=== PATIENT | male | born 1965 | race Caucasian/White ===

== ENCOUNTER 2017-10-26 10:25 | Inpatient (IN) ==
[2017-10-26] MEDS ORDERED: SODIUM CHLORIDE 0.9% 1,000 ML IV STA (10:51)
[2017-10-26] MEDS ORDERED: ALBUTEROL/IPRATROPIUM 3 ML NEB RESP TX STA (10:51)
[2017-10-26] MEDS ORDERED: methylPREDNISolone SOD SUC 125 MG/2 ML VIAL IV STA (10:51)
[2017-10-26] MEDS ORDERED: MAGNESIUM SULF RIDER 2 GM in PREMIX 1 EACH IV STA (10:51)
[2017-10-26] MEDS ORDERED: methylPREDNISolone SOD SUC 125 MG/2 ML VIAL ONE (11:03)
[2017-10-26] MEDS ORDERED: MAGNESIUM SULF RIDER 50 ML IV ONE (11:03)
[2017-10-26 11:10] LABS: Basophils # 0.1 10*3/uL (0.0-0.2); Basophils % 0.6 % (0.0-0.8); Eosinophils % 0.2 % (0.00-10.9); Hematocrit 51.1 VOL% (42.0-52.0); Hemoglobin 17.2 GM/DL (14.0-18.0); Immature Granulocytes % 0.5 %; Immature Granulocytes Absolute 0.07 #; Lymphocytes # 1.4 10*3/uL (1.4-4.0); Lymphocytes % 10.3 % (21.2-54.2); Mean Corpuscular HGB Conc 33.7 GM/DL (32-36); Mean Corpuscular Hemoglobin 30 PG (27-34); Mean Corpuscular Volume 88.1 FL (87-102); Mean Platelet Volume 9.2 FL (9.6-12.0); Monocytes # 1.1 10*3/uL (0.11-0.8); Monocytes % 8.4 % (1.7-12.7); Neutrophils # 10.6 10*3/uL (1.4-7.4); Platelet Count 338 T/CUMM (130-400); Red Cell Distribution Width 14.5 % (9.3-17.3); White Blood Count 13.3 T/CUMM (4-12)
[2017-10-26 11:19] LABS: PT Patient Result 10.4 SECS
[2017-10-26 11:30] LABS: Lactic Acid 1.7 MMOL/L (0.4-2.0)
[2017-10-26 11:32] LABS: Alanine Aminotransferase 30 U/L (16-61); Albumin 4.1 G/DL (3.4-5.0); Alkaline Phosphatase 46 U/L (45-117); Aspartate Amino Transferase 19 U/L (0-37); Blood Urea Nitrogen 12 MG/DL (7-18); Calcium 9.6 MG/DL (8.5-10.1); Glucose 82 MG/DL (74-106); Osmolality,Calculated 275.5 MOS/KG (273-304); Potassium 3.9 MMOL/L (3.5-5.1); Sodium 139 MMOL/L (136-145); Total Protein 7.8 G/DL (6.4-8.3); Troponin I Only < 0.015 NG/ML (0.00-0.045)
[2017-10-26] MEDS ORDERED: KETOROLAC 30 MG/1 ML VIAL IV STA (11:46)
[2017-10-26] MEDS ORDERED: cloNIDine 0.1 MG TABLET PO STA (11:46)
[2017-10-26] MEDS ORDERED: cloNIDine 0.1 MG TABLET ONE (11:47)
[2017-10-26] MEDS ORDERED: KETOROLAC 30 MG/1 ML VIAL ONE (11:48)
[2017-10-26] MEDS ORDERED: AZITHROMYCIN INJ 500 MG in SODIUM CHLORIDE 0.9% 250 ML IV STA (11:52)
[2017-10-26] MEDS ORDERED: cefTRIAXone 2,000 MG in SODIUM CHLORIDE 0.9% 100 ML IV STA (11:52)
[2017-10-26] MEDS ORDERED: cefTRIAXone 1,000 MG VIAL ONE (12:06)
[2017-10-26] MEDS ORDERED: ALBUTEROL/IPRATROPIUM 3 ML NEB RESP TX PRN (12:48)
[2017-10-26] MEDS ORDERED: methylPREDNISolone SOD SUC 40 MG/1 ML VIAL IV SCH (13:00)
[2017-10-26] MEDS ORDERED: guaiFENesin/DM ER 600-30 MG TABLET PO PRN (13:18)
[2017-10-26] MEDS ORDERED: ACETAMINOPHEN 325 MG TABLET PO PRN (13:18)
[2017-10-26] MEDS ORDERED: ZALEPLON 5 MG CAPSULE PO PRN (13:18)
[2017-10-26] MEDS ORDERED: ONDANSETRON 4 MG/2 ML VIAL IV PRN (13:18)
[2017-10-26] MEDS ORDERED: AZITHROMYCIN 500 MG VIAL IV ONE (13:19)
[2017-10-26] MEDS: cefTRIAXone 1,000 MG in SYRINGE 1 EACH IV SCH (16:21)
[2017-10-26] MEDS: SODIUM CHLORIDE 0.9% 1,000 ML IV SCH (16:27)
[2017-10-26] MEDS: ENOXAPARIN 40 MG/0.4 ML SYRINGE SUBCUT SCH (16:27)
[2017-10-26] MEDS ORDERED: TEMAZEPAM 15 MG CAPSULE PO PRN (18:55)
[2017-10-26] MEDS: ALBUTEROL/IPRATROPIUM 3 ML NEB RESP TX SCH ×2 (19:30→23:15)
[2017-10-26 20:50] LABS: ABG Base Excess 0.4 MMOL/L (-2.5-2.5); ABG HCO3 24.7 MMOL/L (20-26); ABG Oxygen Saturation 97.2 % (95-100); ABG PCO2 41.9 MM HG (35-48); ABG PH 7.392 (7.35-7.45); ABG PO2 90.6 MM HG (80-95); ABG TCO2 21.7 MMOL/L (23-27); Allen Test Positive
[2017-10-26] MEDS: methylPREDNISolone SOD SUC 40 MG/1 ML VIAL IV SCH (20:58)
[2017-10-26] MEDS: DOCUSATE SODIUM 100 MG CAPSULE PO SCH (21:01)
[2017-10-27] MEDS: methylPREDNISolone SOD SUC 40 MG/1 ML VIAL IV SCH ×3 (03:11→17:00)
[2017-10-27 03:13] LABS: Basophils % 0.1 % (0.0-0.8); Hematocrit 43.9 VOL% (42.0-52.0); Hemoglobin 15.3 GM/DL (14.0-18.0); Immature Granulocytes % 0.7 %; Immature Granulocytes Absolute 0.06 #; Lymphocytes # 0.5 10*3/uL (1.4-4.0); Mean Corpuscular HGB Conc 34.9 GM/DL (32-36); Mean Corpuscular Hemoglobin 30 PG (27-34); Mean Corpuscular Volume 86.8 FL (87-102); Mean Platelet Volume 9.4 FL (9.6-12.0); Monocytes # 0.5 10*3/uL (0.11-0.8); Neutrophils # 7.9 10*3/uL (1.4-7.4); Neutrophils % 87.2 % (38.7-73.9); Platelet Count 309 T/CUMM (130-400); Red Blood Count 5.06 MC/CUMM (3.8-5.5); Red Cell Distribution Width 14.5 % (9.3-17.3)
[2017-10-27] MEDS: ALBUTEROL/IPRATROPIUM 3 ML NEB RESP TX SCH ×5 (03:18→19:33)
[2017-10-27 03:40] LABS: Albumin 3.3 G/DL (3.4-5.0); Bilirubin,Total 0.5 MG/DL (0.2-1.0); Calcium 8.5 MG/DL (8.5-10.1); Osmolality,Calculated 282.3 MOS/KG (273-304); Potassium 4.5 MMOL/L (3.5-5.1); Total Protein 6.5 G/DL (6.4-8.3)
[2017-10-27] MEDS: DOCUSATE SODIUM 100 MG CAPSULE PO SCH ×2 (08:10→21:25)
[2017-10-27] MEDS: PANTOPRAZOLE 40 MG TABLET PO SCH (08:10)
[2017-10-27] MEDS: SODIUM CHLORIDE 0.9% 1,000 ML IV SCH (10:43)
[2017-10-27] MEDS ORDERED: GLUCAGON 1 MG VIAL IM PRN (13:11)
[2017-10-27] MEDS ORDERED: DEXTROSE 50% 25 GM/50 ML VIAL IV PRN (13:11)
[2017-10-27] MEDS: cefTRIAXone 1,000 MG in SYRINGE 1 EACH IV SCH (13:34)
[2017-10-27] MEDS: ENOXAPARIN 40 MG/0.4 ML SYRINGE SUBCUT SCH (13:39)
[2017-10-27] MEDS: AZITHROMYCIN INJ 500 MG in SODIUM CHLORIDE 0.9% 250 ML IV SCH (13:41)
[2017-10-27] MEDS: INSULIN LISPRO 100 UNIT/ML SUBCUT SCH (21:25)
[2017-10-28] MEDS: ALBUTEROL/IPRATROPIUM 3 ML NEB RESP TX SCH ×4 (00:03→10:56)
[2017-10-28] MEDS: methylPREDNISolone SOD SUC 40 MG/1 ML VIAL IV SCH ×2 (00:34→09:00)
[2017-10-28 06:58] VITALS: BP 131/70
[2017-10-28] MEDS: INSULIN LISPRO 100 UNIT/ML SUBCUT SCH ×2 (07:15→08:52)
[2017-10-28] MEDS: AZITHROMYCIN INJ 500 MG in SODIUM CHLORIDE 0.9% 250 ML IV SCH (09:03)
[2017-10-28] MEDS: DOCUSATE SODIUM 100 MG CAPSULE PO SCH (09:05)
[2017-10-28] MEDS: PANTOPRAZOLE 40 MG TABLET PO SCH (09:06)
== END 2017-10-28 12:18 | disposition home or self-care (01) | DRG 190 ==
LOC: N.ED 10:25 → N.EDINP 13:16 → N.2E 15:46
PROVIDERS: ADMIT Pediatrics; ATTEND Pediatrics

== ENCOUNTER 2018-09-05 10:16 | Inpatient (IN) ==
[2018-09-05] MEDS ORDERED: hydrALAZINE 20 MG/1 ML VIAL IV STA (10:42)
[2018-09-05] MEDS ORDERED: cefTRIAXone 1,000 MG in SODIUM CHLORIDE 0.9% 100 ML IV STA (10:42)
[2018-09-05] MEDS ORDERED: methylPREDNISolone SOD SUC 125 MG/2 ML VIAL IV STA (10:42)
[2018-09-05] MEDS ORDERED: SODIUM CHLORIDE 0.9% 500 ML IV STA (10:42)
[2018-09-05] MEDS ORDERED: ALBUTEROL 2.5 MG/3 ML NEB RESP TX SCH (11:00)
[2018-09-05 11:07] LABS: Basophils # 0.1 10*3/uL (0.0-0.2); Basophils % 0.7 % (0.0-0.8); Eosinophils # 0.1 10*3/uL (0.0-0.87); Eosinophils % 0.4 % (0.00-10.9); Hematocrit 46.9 VOL% (42.0-52.0); Hemoglobin 15.9 GM/DL (14.0-18.0); Immature Granulocytes % 0.4 %; Immature Granulocytes Absolute 0.05 #; Lymphocytes % 7.7 % (21.2-54.2); Mean Corpuscular HGB Conc 33.9 GM/DL (32-36); Mean Corpuscular Hemoglobin 29 PG (27-34); Mean Corpuscular Volume 86.9 FL (87-102); Mean Platelet Volume 9.5 FL (9.6-12.0); Monocytes # 0.7 10*3/uL (0.11-0.8); Monocytes % 5.7 % (1.7-12.7); Neutrophils # 10.4 10*3/uL (1.4-7.4); Neutrophils % 85.1 % (38.7-73.9); Platelet Count 400 T/CUMM (130-400); Red Cell Distribution Width 13.9 % (9.3-17.3); White Blood Count 12.3 T/CUMM (4-12)
[2018-09-05 11:22] LABS: PT Patient Result 10.6 SECS
[2018-09-05 11:23] LABS: Apearance,Urine CLEAR (Clear); Bilirubin,Urine Negative (Negative); Blood, Urine Negative (Negative); Glucose,Urine (UA) Negative (Negative); Ketones,Urine Negative (Negative); Mucus,Urine Occasional /LPF (Occasional); Nitrite,Urine Negative (Negative); Protein,Urine Negative; RBC,Urine <1 /HPF (0-4); Sperm,Urine Occasional /HPF (Negative); Urine Color Yellow (Yellow); Urine Specific Gravity 1.013 (1.001-1.035); Urine Urobilinogen < 2.0 EU/DL (0.2-1.0)
[2018-09-05 11:26] LABS: Alanine Aminotransferase 20 U/L (16-61); Albumin 3.9 G/DL (3.4-5.0); Alkaline Phosphatase 56 U/L (45-117); Aspartate Amino Transferase 15 U/L (0-37); Bilirubin,Total < 0.39 MG/DL (0.2-1.0); Blood Urea Nitrogen 16 MG/DL (7-18); Calcium 9.1 MG/DL (8.5-10.1); Glucose 98 MG/DL (74-106); Osmolality,Calculated 279.4 MOS/KG (273-304); Potassium 4.6 MMOL/L (3.5-5.1); Sodium 140 MMOL/L (136-145); Total Protein 7.5 G/DL (6.4-8.3)
[2018-09-05 11:30] LABS: Barbiturates Screen,Urine Negative (Negative); Benzodiazepines Screen,Urine Negative (Negative); Cannabinoid Screen,Urine Positive (Negative); Opiate Screen,Urine Negative (Negative); Phencyclidine Screen,Urine Negative (Negative)
[2018-09-05] MEDS ORDERED: MAGNESIUM SULF RIDER 2 GM in PREMIX 1 EACH IV STA (12:25)
[2018-09-05] MEDS ORDERED: ACETAMINOPHEN 325 MG TABLET PO PRN (14:19)
[2018-09-05] MEDS ORDERED: NICOTINE 21 MG/24 HR PATCH TRANSDERM PRN (14:19)
[2018-09-05] MEDS ORDERED: ONDANSETRON 4 MG/2 ML VIAL IV PRN (14:19)
[2018-09-05] MEDS ORDERED: MAGNESIUM SULF RIDER 2 GM in PREMIX 1 EACH IV PRN (14:26)
[2018-09-05] MEDS ORDERED: MAGNESIUM SULF RIDER 4 GM in PREMIX 1 EACH IV PRN (14:26)
[2018-09-05] MEDS ORDERED: ALBUTEROL 2.5 MG/3 ML NEB RESP TX PRN ×2 (14:30→19:00)
[2018-09-05] MEDS ORDERED: IPRATROPIUM/ALBUTEROL INHALER INH SCH (17:00)
[2018-09-05] MEDS: AZITHROMYCIN INJ 500 MG in SODIUM CHLORIDE 0.9% 250 ML IV SCH (18:05)
[2018-09-05] MEDS: methylPREDNISolone SOD SUC 40 MG/1 ML VIAL IV SCH (18:06)
[2018-09-05] MEDS: ALBUTEROL/IPRATROPIUM 3 ML NEB RESP TX SCH (20:13)
[2018-09-06] MEDS: ACETYLCYSTEINE 20% 800 MG/4 ML VIAL RESP TX SCH ×3 (00:41→16:02)
[2018-09-06] MEDS: ALBUTEROL/IPRATROPIUM 3 ML NEB RESP TX SCH ×4 (00:41→19:50)
[2018-09-06] MEDS: methylPREDNISolone SOD SUC 40 MG/1 ML VIAL IV SCH ×3 (02:19→18:14)
[2018-09-06 06:44] LABS: Basophils % 0.1 % (0.0-0.8); Hematocrit 44.5 VOL% (42.0-52.0); Hemoglobin 14.5 GM/DL (14.0-18.0); Immature Granulocytes % 0.6 %; Immature Granulocytes Absolute 0.07 #; Lymphocytes # 0.8 10*3/uL (1.4-4.0); Lymphocytes % 7.5 % (21.2-54.2); Mean Corpuscular HGB Conc 32.6 GM/DL (32-36); Mean Corpuscular Hemoglobin 29 PG (27-34); Mean Corpuscular Volume 87.9 FL (87-102); Mean Platelet Volume 9.9 FL (9.6-12.0); Monocytes # 0.6 10*3/uL (0.11-0.8); Monocytes % 5.5 % (1.7-12.7); Neutrophils # 9.6 10*3/uL (1.4-7.4); Neutrophils % 86.3 % (38.7-73.9); Platelet Count 389 T/CUMM (130-400); Red Blood Count 5.06 MC/CUMM (3.8-5.5); Red Cell Distribution Width 14.3 % (9.3-17.3); White Blood Count 11.1 T/CUMM (4-12)
[2018-09-06 07:07] LABS: Calcium 8.5 MG/DL (8.5-10.1); Osmolality,Calculated 284.1 MOS/KG (273-304); Risk Ratio 4.38; Thyroid Stimulating Hormone 0.628 uIU/ml (0.358-3.74); VLDL CHOLESTEROL 12.8 MG/DL
[2018-09-06] MEDS: PANTOPRAZOLE 40 MG TABLET PO SCH ×2 (09:34→09:39)
[2018-09-06] MEDS: MULTIVITAMIN (CENTRUM) TABLET PO SCH (09:34)
[2018-09-06] MEDS: cefTRIAXone 1,000 MG in SYRINGE 1 EACH IV SCH (09:34)
[2018-09-06] MEDS: LANSOPRAZOLE ODT 30 MG TABLET PO SCH (11:12)
[2018-09-06] MEDS: AZITHROMYCIN INJ 500 MG in SODIUM CHLORIDE 0.9% 250 ML IV SCH (15:40)
[2018-09-07] MEDS: ALBUTEROL/IPRATROPIUM 3 ML NEB RESP TX SCH ×2 (01:33→08:00)
[2018-09-07] MEDS: ACETYLCYSTEINE 20% 800 MG/4 ML VIAL RESP TX SCH ×2 (01:35→08:02)
[2018-09-07] MEDS: methylPREDNISolone SOD SUC 40 MG/1 ML VIAL IV SCH (03:03)
[2018-09-07 06:07] LABS: Basophils % 0.2 % (0.0-0.8); Hematocrit 41.7 VOL% (42.0-52.0); Hemoglobin 13.6 GM/DL (14.0-18.0); Immature Granulocytes % 0.6 %; Lymphocytes # 0.9 10*3/uL (1.4-4.0); Lymphocytes % 4.9 % (21.2-54.2); Mean Corpuscular HGB Conc 32.6 GM/DL (32-36); Mean Corpuscular Hemoglobin 29 PG (27-34); Mean Corpuscular Volume 88.5 FL (87-102); Mean Platelet Volume 9.7 FL (9.6-12.0); Monocytes # 0.9 10*3/uL (0.11-0.8); Monocytes % 4.8 % (1.7-12.7); Neutrophils # 16.2 10*3/uL (1.4-7.4); Neutrophils % 89.5 % (38.7-73.9); Platelet Count 370 T/CUMM (130-400); Red Blood Count 4.71 MC/CUMM (3.8-5.5); Red Cell Distribution Width 14.3 % (9.3-17.3); White Blood Count 18.1 T/CUMM (4-12)
[2018-09-07 06:18] LABS: Calcium 8.7 MG/DL (8.5-10.1); Potassium 4.4 MMOL/L (3.5-5.1)
[2018-09-07] MEDS: MULTIVITAMIN (CENTRUM) TABLET PO SCH (09:24)
[2018-09-07] MEDS: LANSOPRAZOLE ODT 30 MG TABLET PO SCH (09:24)
[2018-09-07] MEDS: cefTRIAXone 1,000 MG in SYRINGE 1 EACH IV SCH (09:24)
[2018-09-07 09:55] LABS: Lymphocytes 1 % (20-55); Platelet Estimate Normal; Polychromasia Slight; Segmented Neutrophils 96 % (50-85); Total Cells Counted 100
[2018-09-07 10:03] VITALS: BP 114/75
== END 2018-09-07 11:10 | disposition home or self-care (01) | DRG 192 ==
LOC: N.ED 10:16 → N.5E 13:42
PROVIDERS: ADMIT Internal Medicine; ATTEND Internal Medicine

== ENCOUNTER 2019-07-07 05:10 | Observation (INO) ==
[2019-07-07] MEDS ORDERED: methylPREDNISolone SOD SUC 125 MG/2 ML VIAL IV STA (06:15)
[2019-07-07] MEDS ORDERED: ALBUTEROL NEB SOLN 5 MG/ML 20 ML/BOTTLE RESP TX SCH (06:30)
[2019-07-07 06:52] LABS: Basophils # 0.1 10*3/uL (0.0-0.2); Basophils % 1.4 % (0.0-0.8); Eosinophils # 0.8 10*3/uL (0.0-0.87); Eosinophils % 9.5 % (0.00-10.9); Hematocrit 47.9 VOL% (42.0-52.0); Hemoglobin 16.4 GM/DL (14.0-18.0); Immature Granulocytes % 0.5 %; Immature Granulocytes Absolute 0.04 #; Lymphocytes # 2.3 10*3/uL (1.4-4.0); Lymphocytes % 27.1 % (21.2-54.2); Mean Corpuscular HGB Conc 34.2 GM/DL (32-36); Mean Corpuscular Volume 87.1 FL (87-102); Mean Platelet Volume 9.5 FL (9.6-12.0); Monocytes % 9.5 % (1.7-12.7); Platelet Count 351 T/CUMM (130-400); Red Cell Distribution Width 13.5 % (9.3-17.3); White Blood Count 8.4 T/CUMM (4-12)
[2019-07-07 07:01] LABS: Alanine Aminotransferase 18 U/L (16-61); Albumin 3.8 G/DL (3.4-5.0); Alkaline Phosphatase 55 U/L (45-117); Aspartate Amino Transferase 19 U/L (0-37); Bilirubin,Total < 0.39 MG/DL (0.2-1.0); Blood Urea Nitrogen 21 MG/DL (7-18); Calcium 9.7 MG/DL (8.5-10.1); Estimated Glom Filtration Rate 101 ML/MIN; Glucose 83 MG/DL (74-106); Osmolality,Calculated 284.1 MOS/KG (273-304); Total Protein 7.9 G/DL (6.4-8.3)
[2019-07-07 07:28] LABS: Apearance,Urine CLEAR (Clear); Bilirubin,Urine Negative (Negative); Blood, Urine Negative (Negative); Glucose,Urine (UA) Negative (Negative); Ketones,Urine Negative (Negative); Mucus,Urine Occasional /LPF (Occasional); Nitrite,Urine Negative (Negative); Protein,Urine Negative; RBC,Urine <1 /HPF (0-4); Urine Color Straw (Yellow); Urine Urobilinogen < 2.0 EU/DL (0.2-1.0); WBC,Urine <1 /HPF (0-6)
[2019-07-07 07:35] LABS: Barbiturates Screen,Urine Negative (Negative); Benzodiazepines Screen,Urine Negative (Negative); Cannabinoid Screen,Urine Negative (Negative); Opiate Screen,Urine Negative (Negative); Phencyclidine Screen,Urine Negative (Negative)
[2019-07-07] MEDS ORDERED: ACETAMINOPHEN 325 MG TABLET PO PRN (08:17)
[2019-07-07] MEDS ORDERED: DOCUSATE SODIUM 100 MG CAPSULE PO PRN (08:17)
[2019-07-07] MEDS ORDERED: ONDANSETRON 4 MG/2 ML VIAL IV PRN (08:17)
[2019-07-07] MEDS ORDERED: ALBUTEROL 2.5 MG/3 ML NEB RESP TX PRN (08:19)
[2019-07-07] MEDS ORDERED: NON-FORMULARY MEDICATION (Albuterol Sulfate [Proair Hfa] 2 PUFF) INH PRN (08:20)
[2019-07-07] MEDS: ENOXAPARIN 40 MG/0.4 ML SYRINGE SUBCUT SCH (09:06)
[2019-07-07] MEDS: MULTIVITAMIN (CENTRUM) TABLET PO SCH (09:07)
[2019-07-07] MEDS: PANTOPRAZOLE 40 MG TABLET PO SCH (09:08)
[2019-07-07 09:46] LABS: Risk Ratio 5.74; Thyroid Stimulating Hormone 2.82 uIU/ml (0.358-3.74)
[2019-07-07] MEDS: amLODIPine 5 MG TABLET PO SCH (10:10)
[2019-07-07] MEDS: NICOTINE 7 MG/24 HR PATCH TRANSDERM SCH (10:10)
[2019-07-07] MEDS: ALBUTEROL/IPRATROPIUM 3 ML NEB RESP TX SCH ×2 (13:27→19:15)
[2019-07-07] MEDS ORDERED: SIMVASTATIN 20 MG TABLET PO SCH (21:00)
[2019-07-08] MEDS: ALBUTEROL/IPRATROPIUM 3 ML NEB RESP TX SCH ×2 (00:30→07:13)
[2019-07-08 04:54] LABS: Basophils % 0.4 % (0.0-0.8); Eosinophils % 0.2 % (0.00-10.9); Hematocrit 43.6 VOL% (42.0-52.0); Hemoglobin 14.8 GM/DL (14.0-18.0); Immature Granulocytes % 0.4 %; Immature Granulocytes Absolute 0.05 #; Lymphocytes % 17.6 % (21.2-54.2); Mean Corpuscular HGB Conc 33.9 GM/DL (32-36); Mean Corpuscular Volume 86.7 FL (87-102); Mean Platelet Volume 9.8 FL (9.6-12.0); Monocytes % 12.8 % (1.7-12.7); Neutrophils % 68.6 % (38.7-73.9); Platelet Count 343 T/CUMM (130-400); Red Blood Count 5.03 MC/CUMM (3.8-5.5); Red Cell Distribution Width 13.5 % (9.3-17.3); White Blood Count 11.3 T/CUMM (4-12)
[2019-07-08 05:33] LABS: Calcium 8.9 MG/DL (8.5-10.1); Osmolality,Calculated 285.1 MOS/KG (273-304)
[2019-07-08] MEDS: ENOXAPARIN 40 MG/0.4 ML SYRINGE SUBCUT SCH (08:58)
[2019-07-08] MEDS: amLODIPine 5 MG TABLET PO SCH (08:59)
[2019-07-08] MEDS: MULTIVITAMIN (CENTRUM) TABLET PO SCH (08:59)
[2019-07-08] MEDS: PANTOPRAZOLE 40 MG TABLET PO SCH (08:59)
[2019-07-08] MEDS: NICOTINE 7 MG/24 HR PATCH TRANSDERM SCH (08:59)
[2019-07-08] MEDS ORDERED: methylPREDNISolone SOD SUC 40 MG/1 ML VIAL IV SCH (09:00)
[2019-07-08 10:45] VITALS: BP 116/72
== END 2019-07-08 13:29 | disposition home or self-care (01) ==
LOC: N.ED 05:10 → INTOOBSV 07:16 → N.EDINP 07:16 → N.5E 08:41
PROVIDERS: ADMIT Hospitalist; ATTEND Hospitalist

== ENCOUNTER 2019-08-11 10:11 | Observation (INO) ==
[2019-08-11] MEDS ORDERED: methylPREDNISolone SOD SUC 125 MG/2 ML VIAL IV STA (10:32)
[2019-08-11 11:00] LABS: Basophils # 0.1 10*3/uL (0.0-0.2); Basophils % 1.3 % (0.0-0.8); Eosinophils # 0.5 10*3/uL (0.0-0.87); Eosinophils % 5.3 % (0.00-10.9); Hematocrit 45.4 VOL% (42.0-52.0); Hemoglobin 15.2 GM/DL (14.0-18.0); Immature Granulocytes % 0.4 %; Immature Granulocytes Absolute 0.04 #; Lymphocytes # 1.6 10*3/uL (1.4-4.0); Lymphocytes % 17.1 % (21.2-54.2); Mean Corpuscular HGB Conc 33.5 GM/DL (32-36); Mean Corpuscular Volume 88.5 FL (87-102); Mean Platelet Volume 8.9 FL (9.6-12.0); Monocytes % 9.6 % (1.7-12.7); Neutrophils % 66.3 % (38.7-73.9); Platelet Count 334 T/CUMM (130-400); Red Blood Count 5.13 MC/CUMM (3.8-5.5); Red Cell Distribution Width 13.6 % (9.3-17.3)
[2019-08-11] MEDS ORDERED: ALBUTEROL 2.5 MG/3 ML NEB RESP TX SCH (11:00)
[2019-08-11 11:04] LABS: White Blood Count 9.4 T/CUMM (4-12)
[2019-08-11 11:19] LABS: Osmolality,Calculated 283.1 MOS/KG (273-304)
[2019-08-11] MEDS ORDERED: ACETAMINOPHEN 325 MG TABLET PO PRN (12:35)
[2019-08-11] MEDS ORDERED: NICOTINE 21 MG/24 HR PATCH TRANSDERM PRN (12:35)
[2019-08-11] MEDS ORDERED: ONDANSETRON 4 MG/2 ML VIAL IV PRN (12:35)
[2019-08-11 12:44] LABS: Apearance,Urine CLEAR (Clear); Bacteria,Urine Occasional /HPF (Few); Bilirubin,Urine Negative (Negative); Blood, Urine Negative (Negative); Glucose,Urine (UA) Negative (Negative); Ketones,Urine Negative (Negative); Mucus,Urine Occasional /LPF (Occasional); Nitrite,Urine Negative (Negative); Protein,Urine Negative; RBC,Urine 1 /HPF (0-4); Squamous Epithelial Cell,Urine Occasional /HPF (0-10); Urine Color Yellow (Yellow); Urine Specific Gravity 1.013 (1.001-1.035); Urine Urobilinogen < 2.0 EU/DL (0.2-1.0); WBC,Urine <1 /HPF (0-6)
[2019-08-11] MEDS: AZITHROMYCIN 250 MG TABLET PO SCH (14:35)
[2019-08-11] MEDS: ENOXAPARIN 40 MG/0.4 ML SYRINGE SUBCUT SCH (14:35)
[2019-08-11] MEDS: SODIUM CHLORIDE 0.9% 1,000 ML IV SCH (14:36)
[2019-08-11] MEDS: ALBUTEROL/IPRATROPIUM 3 ML NEB RESP TX SCH ×2 (15:40→19:38)
[2019-08-11] MEDS: guaiFENesin 200 MG/10 ML UDCUP PO SCH (20:51)
[2019-08-11] MEDS: methylPREDNISolone SOD SUC 40 MG/1 ML VIAL IV SCH (20:52)
[2019-08-12] MEDS: ALBUTEROL/IPRATROPIUM 3 ML NEB RESP TX SCH ×6 (00:11→20:47)
[2019-08-12] MEDS: SODIUM CHLORIDE 0.9% 1,000 ML IV SCH ×3 (00:39→20:39)
[2019-08-12 04:47] LABS: Basophils % 0.2 % (0.0-0.8); Hematocrit 43.9 VOL% (42.0-52.0); Hemoglobin 14.7 GM/DL (14.0-18.0); Immature Granulocytes % 0.8 %; Immature Granulocytes Absolute 0.07 #; Lymphocytes # 0.8 10*3/uL (1.4-4.0); Lymphocytes % 8.9 % (21.2-54.2); Mean Corpuscular HGB Conc 33.5 GM/DL (32-36); Mean Platelet Volume 9.4 FL (9.6-12.0); Monocytes % 1.3 % (1.7-12.7); Neutrophils % 88.8 % (38.7-73.9); Platelet Count 344 T/CUMM (130-400); Red Blood Count 4.93 MC/CUMM (3.8-5.5); Red Cell Distribution Width 13.8 % (9.3-17.3); White Blood Count 8.9 T/CUMM (4-12)
[2019-08-12 05:16] LABS: Calcium 8.7 MG/DL (8.5-10.1); Osmolality,Calculated 284.1 MOS/KG (273-304)
[2019-08-12] MEDS: guaiFENesin 200 MG/10 ML UDCUP PO SCH ×3 (05:19→20:34)
[2019-08-12] MEDS: methylPREDNISolone SOD SUC 40 MG/1 ML VIAL IV SCH ×3 (05:19→20:34)
[2019-08-12] MEDS: PANTOPRAZOLE 40 MG TABLET PO SCH (08:28)
[2019-08-12] MEDS: AZITHROMYCIN 250 MG TABLET PO SCH (08:28)
[2019-08-12] MEDS: SIMVASTATIN 20 MG TABLET PO SCH (08:28)
[2019-08-12] MEDS: ENOXAPARIN 40 MG/0.4 ML SYRINGE SUBCUT SCH (12:21)
[2019-08-13] MEDS: ALBUTEROL/IPRATROPIUM 3 ML NEB RESP TX SCH ×4 (00:33→11:22)
[2019-08-13] MEDS: methylPREDNISolone SOD SUC 40 MG/1 ML VIAL IV SCH (04:18)
[2019-08-13] MEDS: guaiFENesin 200 MG/10 ML UDCUP PO SCH (04:18)
[2019-08-13 04:50] LABS: Basophils % 0.1 % (0.0-0.8); Hematocrit 39.8 VOL% (42.0-52.0); Hemoglobin 13.1 GM/DL (14.0-18.0); Immature Granulocytes % 0.6 %; Immature Granulocytes Absolute 0.12 #; Lymphocytes # 1.1 10*3/uL (1.4-4.0); Lymphocytes % 5.1 % (21.2-54.2); Mean Corpuscular HGB Conc 32.9 GM/DL (32-36); Mean Corpuscular Volume 89.6 FL (87-102); Mean Platelet Volume 9.6 FL (9.6-12.0); Monocytes % 5.1 % (1.7-12.7); Neutrophils % 89.1 % (38.7-73.9); Platelet Count 329 T/CUMM (130-400); Red Blood Count 4.44 MC/CUMM (3.8-5.5); Red Cell Distribution Width 14.1 % (9.3-17.3); White Blood Count 20.6 T/CUMM (4-12)
[2019-08-13 05:09] LABS: Hypochromasia Slight; Lymphocytes 6 % (20-55); Platelet Estimate Adequate; Segmented Neutrophils 91 % (50-85); Total Cells Counted 100
[2019-08-13 05:12] LABS: Calcium 8.4 MG/DL (8.5-10.1); Osmolality,Calculated 289.8 MOS/KG (273-304)
[2019-08-13] MEDS: SODIUM CHLORIDE 0.9% 1,000 ML IV SCH (06:30)
[2019-08-13] MEDS: PANTOPRAZOLE 40 MG TABLET PO SCH (08:41)
[2019-08-13] MEDS: AZITHROMYCIN 250 MG TABLET PO SCH (08:41)
[2019-08-13] MEDS: SIMVASTATIN 20 MG TABLET PO SCH (08:41)
[2019-08-13 11:34] VITALS: BP 168/91
== END 2019-08-13 12:31 | disposition home or self-care (01) ==
LOC: N.ED 10:11 → N.EDINP 10:11 → N.2W 14:07
PROVIDERS: ADMIT Family Medicine; ATTEND Family Medicine

== ENCOUNTER 2020-03-02 13:20 | Inpatient (IN) ==
[2020-03-02] MEDS ORDERED: methylPREDNISolone SOD SUC 125 MG/2 ML VIAL IV STA (13:43)
[2020-03-02] MEDS ORDERED: ALBUTEROL/IPRATROPIUM 3 ML NEB RESP TX STA (13:43)
[2020-03-02 14:28] LABS: Basophils # 0.1 10*3/uL (0.0-0.2); Basophils % 0.5 % (0.0-0.8); Eosinophils % 0.1 % (0.00-10.9); Hematocrit 47.4 VOL% (42.0-52.0); Hemoglobin 15.9 GM/DL (14.0-18.0); Immature Granulocytes % 0.5 %; Immature Granulocytes Absolute 0.07 #; Lymphocytes # 1.4 10*3/uL (1.4-4.0); Lymphocytes % 9.7 % (21.2-54.2); Mean Corpuscular HGB Conc 33.5 GM/DL (32-36); Mean Corpuscular Volume 89.8 FL (87-102); Mean Platelet Volume 9.3 FL (9.6-12.0); Monocytes % 5.9 % (1.7-12.7); Neutrophils % 83.3 % (38.7-73.9); Platelet Count 408 T/CUMM (130-400); Red Blood Count 5.28 MC/CUMM (3.8-5.5); Red Cell Distribution Width 13.2 % (9.3-17.3); White Blood Count 14.1 T/CUMM (4-12)
[2020-03-02 14:46] LABS: Calcium 8.8 MG/DL (8.5-10.1); Osmolality,Calculated 282.3 MOS/KG (273-304)
[2020-03-02] MEDS ORDERED: GLUCAGON 1 MG VIAL IM PRN (15:33)
[2020-03-02] MEDS ORDERED: ONDANSETRON 4 MG/2 ML VIAL IV PRN (15:33)
[2020-03-02] MEDS ORDERED: DEXTROSE 10% 250 ML BAG IV PRN (15:33)
[2020-03-02] MEDS ORDERED: ACETAMINOPHEN 325 MG TABLET PO PRN (15:33)
[2020-03-02] MEDS ORDERED: ALBUTEROL 2.5 MG/3 ML NEB RESP TX PRN (15:33)
[2020-03-02] MEDS: cefTRIAXone 1,000 MG in SYRINGE 1 EACH IV SCH (16:48)
[2020-03-02] MEDS: ENOXAPARIN 40 MG/0.4 ML SYRINGE SUBCUT SCH (16:48)
[2020-03-02] MEDS: ALBUTEROL/IPRATROPIUM 3 ML NEB RESP TX SCH (19:44)
[2020-03-02] MEDS: methylPREDNISolone SOD SUC 40 MG/1 ML VIAL IV SCH (23:28)
[2020-03-03] MEDS: ALBUTEROL/IPRATROPIUM 3 ML NEB RESP TX SCH ×4 (01:34→19:27)
[2020-03-03] MEDS: methylPREDNISolone SOD SUC 40 MG/1 ML VIAL IV SCH ×3 (07:02→23:15)
[2020-03-03 07:45] LABS: Basophils % 0.2 % (0.0-0.8); Hematocrit 44.6 VOL% (42.0-52.0); Hemoglobin 15.2 GM/DL (14.0-18.0); Immature Granulocytes % 0.7 %; Immature Granulocytes Absolute 0.09 #; Lymphocytes # 1.5 10*3/uL (1.4-4.0); Mean Corpuscular HGB Conc 34.1 GM/DL (32-36); Mean Corpuscular Volume 87.6 FL (87-102); Monocytes % 4.5 % (1.7-12.7); Neutrophils % 83.6 % (38.7-73.9); Platelet Count 398 T/CUMM (130-400); Red Blood Count 5.09 MC/CUMM (3.8-5.5); White Blood Count 13.2 T/CUMM (4-12)
[2020-03-03 08:00] LABS: Albumin 3.3 G/DL (3.4-5.0); Bilirubin,Total 0.5 MG/DL (0.2-1.0); Calcium 9.1 MG/DL (8.5-10.1); Osmolality,Calculated 275.8 MOS/KG (273-304); Total Protein 7.3 G/DL (6.4-8.3)
[2020-03-03] MEDS: guaiFENesin 200 MG/10 ML UDCUP PO SCH ×2 (09:28→21:30)
[2020-03-03] MEDS: PANTOPRAZOLE 40 MG TABLET PO SCH (09:28)
[2020-03-03] MEDS: ENOXAPARIN 40 MG/0.4 ML SYRINGE SUBCUT SCH (16:23)
[2020-03-03] MEDS: cefTRIAXone 1,000 MG in SYRINGE 1 EACH IV SCH (16:25)
[2020-03-03] MEDS: SIMVASTATIN 20 MG TABLET PO SCH (21:30)
[2020-03-04] MEDS: ALBUTEROL/IPRATROPIUM 3 ML NEB RESP TX SCH ×4 (00:45→19:56)
[2020-03-04] MEDS: methylPREDNISolone SOD SUC 40 MG/1 ML VIAL IV SCH ×3 (06:15→23:20)
[2020-03-04 07:31] LABS: Basophils % 0.1 % (0.0-0.8); Hematocrit 45.2 VOL% (42.0-52.0); Hemoglobin 14.6 GM/DL (14.0-18.0); Immature Granulocytes % 0.9 %; Immature Granulocytes Absolute 0.15 #; Lymphocytes # 0.9 10*3/uL (1.4-4.0); Lymphocytes % 5.1 % (21.2-54.2); Mean Corpuscular HGB Conc 32.3 GM/DL (32-36); Mean Corpuscular Volume 92.4 FL (87-102); Mean Platelet Volume 9.6 FL (9.6-12.0); Monocytes % 4.6 % (1.7-12.7); Neutrophils % 89.3 % (38.7-73.9); Platelet Count 398 T/CUMM (130-400); Red Blood Count 4.89 MC/CUMM (3.8-5.5); Red Cell Distribution Width 13.3 % (9.3-17.3); White Blood Count 17.3 T/CUMM (4-12)
[2020-03-04 08:08] LABS: Risk Ratio 4.45; VLDL CHOLESTEROL 22.4 MG/DL
[2020-03-04 08:40] LABS: Calcium 8.7 MG/DL (8.5-10.1); Osmolality,Calculated 288.1 MOS/KG (273-304)
[2020-03-04] MEDS ORDERED: ALBUTEROL/IPRATROPIUM 3 ML NEB RESP TX PRN (08:47)
[2020-03-04] MEDS: PANTOPRAZOLE 40 MG TABLET PO SCH (09:17)
[2020-03-04] MEDS: MONTELUKAST 10 MG TABLET PO SCH (09:17)
[2020-03-04] MEDS: guaiFENesin 200 MG/10 ML UDCUP PO SCH ×2 (09:17→21:07)
[2020-03-04] MEDS: DORNASE ALFA 2.5 MG/2.5 ML VIAL RESP TX SCH ×2 (13:20→20:06)
[2020-03-04 15:40] LABS: Barbiturates Screen,Urine Negative (Negative); Benzodiazepines Screen,Urine Negative (Negative); Cannabinoid Screen,Urine Positive (Negative); Opiate Screen,Urine Negative (Negative); Phencyclidine Screen,Urine Negative (Negative)
[2020-03-04] MEDS: ENOXAPARIN 40 MG/0.4 ML SYRINGE SUBCUT SCH (15:45)
[2020-03-04] MEDS: cefTRIAXone 1,000 MG in SYRINGE 1 EACH IV SCH (16:35)
[2020-03-04] MEDS: SIMVASTATIN 20 MG TABLET PO SCH (21:07)
[2020-03-05] MEDS: ALBUTEROL/IPRATROPIUM 3 ML NEB RESP TX SCH ×2 (00:18→07:05)
[2020-03-05 05:45] LABS: Basophils % 0.2 % (0.0-0.8); Hematocrit 43.8 VOL% (42.0-52.0); Hemoglobin 14.6 GM/DL (14.0-18.0); Immature Granulocytes % 1.1 %; Immature Granulocytes Absolute 0.18 #; Lymphocytes % 5.8 % (21.2-54.2); Mean Corpuscular HGB Conc 33.3 GM/DL (32-36); Mean Corpuscular Volume 89.6 FL (87-102); Mean Platelet Volume 9.5 FL (9.6-12.0); Monocytes % 3.8 % (1.7-12.7); Neutrophils % 89.1 % (38.7-73.9); Platelet Count 361 T/CUMM (130-400); Red Blood Count 4.89 MC/CUMM (3.8-5.5); Red Cell Distribution Width 13.2 % (9.3-17.3); White Blood Count 17.1 T/CUMM (4-12)
[2020-03-05 06:06] LABS: Calcium 8.7 MG/DL (8.5-10.1); Osmolality,Calculated 282.4 MOS/KG (273-304)
[2020-03-05] MEDS: methylPREDNISolone SOD SUC 40 MG/1 ML VIAL IV SCH (06:28)
[2020-03-05] MEDS: DORNASE ALFA 2.5 MG/2.5 ML VIAL RESP TX SCH (07:10)
[2020-03-05] MEDS: MONTELUKAST 10 MG TABLET PO SCH (08:52)
[2020-03-05] MEDS: guaiFENesin 200 MG/10 ML UDCUP PO SCH (08:52)
[2020-03-05] MEDS: PANTOPRAZOLE 40 MG TABLET PO SCH (08:52)
[2020-03-05 11:02] VITALS: BP 142/83
== END 2020-03-05 01:00 | disposition home or self-care (01) | DRG 192 ==
LOC: N.ED 13:20 → N.EDINP 13:20 → N.3E 21:30
PROVIDERS: ADMIT Family Medicine; ATTEND Family Medicine

== ENCOUNTER 2020-05-31 08:55 | Inpatient (IN) ==
[2020-05-31] MEDS ORDERED: methylPREDNISolone SOD SUC 125 MG/2 ML VIAL IV STA (09:32)
[2020-05-31] MEDS ORDERED: ALBUTEROL/IPRATROPIUM 3 ML NEB RESP TX STA (09:32)
[2020-05-31] MEDS ORDERED: hydrALAZINE 20 MG/1 ML VIAL IV STA (09:33)
[2020-05-31 09:43] LABS: Basophils # 0.2 10*3/uL (0.0-0.2); Basophils % 0.7 % (0.0-0.8); Eosinophils # 0.6 10*3/uL (0.0-0.87); Eosinophils % 2.7 % (0.00-10.9); Hematocrit 47.7 VOL% (42.0-52.0); Hemoglobin 15.8 GM/DL (14.0-18.0); Immature Granulocytes % 0.4 %; Immature Granulocytes Absolute 0.08 #; Lymphocytes # 3.7 10*3/uL (1.4-4.0); Lymphocytes % 17.7 % (21.2-54.2); Mean Corpuscular HGB Conc 33.1 GM/DL (32-36); Mean Platelet Volume 9.5 FL (9.6-12.0); Monocytes % 11.7 % (1.7-12.7); Neutrophils % 66.8 % (38.7-73.9); Platelet Count 438 T/CUMM (130-400); Red Blood Count 5.42 MC/CUMM (3.8-5.5); Red Cell Distribution Width 13.2 % (9.3-17.3); White Blood Count 20.7 T/CUMM (4-12)
[2020-05-31 09:52] LABS: Albumin 3.6 G/DL (3.4-5.0); Bilirubin,Total 0.6 MG/DL (0.2-1.0); Calcium 9.7 MG/DL (8.5-10.1); Osmolality,Calculated 274.5 MOS/KG (273-304); Total Protein 7.3 G/DL (6.4-8.3)
[2020-05-31] MEDS ORDERED: cefTRIAXone 1,000 MG in SODIUM CHLORIDE 0.9% 100 ML IV STA (10:05)
[2020-05-31] MEDS ORDERED: cefTRIAXone 1,000 MG in SYRINGE 1 EACH IV STA (10:07)
[2020-05-31 10:09] LABS: Band Neutrophils 2 % (0-10); Eosinophils 3 % (0-10); Hypochromasia 1+; Lymphocytes 18 % (20-55); Microcytosis Slight; Platelet Estimate Increased; Segmented Neutrophils 69 % (50-85); Total Cells Counted 100
[2020-05-31] MEDS ORDERED: ONDANSETRON 4 MG/2 ML VIAL IV PRN (10:09)
[2020-05-31] MEDS ORDERED: GLUCAGON 1 MG VIAL IM PRN (10:09)
[2020-05-31] MEDS ORDERED: MORPHINE 4 MG/1 ML VIAL IV PRN (10:09)
[2020-05-31] MEDS ORDERED: ACETAMINOPHEN 325 MG TABLET PO PRN (10:09)
[2020-05-31] MEDS ORDERED: DEXTROSE 50% 25 GM/50 ML VIAL IV PRN (10:09)
[2020-05-31] MEDS ORDERED: AZITHROMYCIN 250 MG TABLET PO ONE (10:13)
[2020-05-31] MEDS: ALBUTEROL 2.5 MG/3 ML NEB RESP TX SCH (10:30)
[2020-05-31] MEDS ORDERED: methylPREDNISolone SOD SUC 40 MG/1 ML VIAL IV SCH (10:30)
[2020-05-31] MEDS ORDERED: INSULIN REGULAR 100 UNIT/ML SUBCUT SCH (11:30)
[2020-05-31] MEDS ORDERED: ALBUTEROL/IPRATROPIUM 3 ML NEB RESP TX SCH (13:00)
[2020-05-31 14:27] LABS: Ferritin 41.7 ng/ml (26-388)
[2020-05-31 14:41] LABS: Basophils # 0.1 10*3/uL (0.0-0.2); Basophils % 0.4 % (0.0-0.8); Hematocrit 50.4 VOL% (42.0-52.0); Hemoglobin 16.3 GM/DL (14.0-18.0); Immature Granulocytes % 0.8 %; Immature Granulocytes Absolute 0.17 #; Lymphocytes # 0.4 10*3/uL (1.4-4.0); Lymphocytes % 1.9 % (21.2-54.2); Mean Corpuscular HGB Conc 32.3 GM/DL (32-36); Mean Platelet Volume 9.5 FL (9.6-12.0); Monocytes % 2.6 % (1.7-12.7); Neutrophils % 94.3 % (38.7-73.9); Platelet Count 459 T/CUMM (130-400); Red Cell Distribution Width 13.2 % (9.3-17.3); White Blood Count 22.5 T/CUMM (4-12)
[2020-05-31] MEDS: DEXAMETHASONE 4 MG/1 ML VIAL IV SCH (15:20)
[2020-05-31 16:13] LABS: Lymphocytes 4 % (20-55); Segmented Neutrophils 95 % (50-85); Total Cells Counted 100
[2020-05-31 16:14] LABS: Hypochromasia 2+; Platelet Estimate Increased
[2020-05-31] MEDS: ALBUTEROL INHALER 18 GM INH SCH (20:33)
[2020-05-31] MEDS: ASCORBIC ACID 500 MG TABLET PO SCH (20:33)
[2020-05-31] MEDS: guaiFENesin 200 MG/10 ML UDCUP PO PRN (21:26)
[2020-06-01] MEDS: ALBUTEROL INHALER 18 GM INH SCH ×4 (00:24→20:08)
[2020-06-01 05:44] LABS: Basophils % 0.1 % (0.0-0.8); Hematocrit 44.3 VOL% (42.0-52.0); Hemoglobin 14.4 GM/DL (14.0-18.0); Immature Granulocytes % 0.6 %; Lymphocytes # 1.4 10*3/uL (1.4-4.0); Lymphocytes % 8.1 % (21.2-54.2); Mean Corpuscular HGB Conc 32.5 GM/DL (32-36); Mean Corpuscular Volume 89.3 FL (87-102); Mean Platelet Volume 9.7 FL (9.6-12.0); Monocytes % 7.1 % (1.7-12.7); Neutrophils % 84.1 % (38.7-73.9); Platelet Count 426 T/CUMM (130-400); Red Blood Count 4.96 MC/CUMM (3.8-5.5); White Blood Count 16.8 T/CUMM (4-12)
[2020-06-01 06:01] LABS: Calcium 9.5 MG/DL (8.5-10.1); Osmolality,Calculated 276.7 MOS/KG (273-304)
[2020-06-01 06:06] LABS: Albumin 3.1 G/DL (3.4-5.0); Bilirubin,Total 0.6 MG/DL (0.2-1.0); Calcium 9.5 MG/DL (8.5-10.1); Osmolality,Calculated 278.5 MOS/KG (273-304); Total Protein 7.2 G/DL (6.4-8.3)
[2020-06-01 06:09] LABS: Ferritin 57.3 ng/ml (26-388)
[2020-06-01] MEDS: ENOXAPARIN 40 MG/0.4 ML SYRINGE SUBCUT SCH (08:38)
[2020-06-01] MEDS: cefTRIAXone 1,000 MG in SYRINGE 1 EACH IV SCH (08:39)
[2020-06-01] MEDS: DEXAMETHASONE 4 MG/1 ML VIAL IV SCH (08:39)
[2020-06-01] MEDS: ASCORBIC ACID 500 MG TABLET PO SCH ×2 (08:40→20:08)
[2020-06-01] MEDS: ZINC SULFATE 220 MG CAPSULE PO SCH (08:41)
[2020-06-01] MEDS ORDERED: PANTOPRAZOLE 40 MG TABLET PO SCH (09:00)
[2020-06-01] MEDS ORDERED: AZITHROMYCIN 250 MG TABLET PO SCH (09:00)
[2020-06-01] MEDS: guaiFENesin 200 MG/10 ML UDCUP PO PRN ×2 (11:54→16:41)
[2020-06-01] MEDS ORDERED: SIMVASTATIN 20 MG TABLET PO SCH (17:00)
[2020-06-02] MEDS: ALBUTEROL INHALER 18 GM INH SCH ×2 (00:27→06:12)
[2020-06-02 07:42] VITALS: BP 129/85
[2020-06-02] MEDS: DEXAMETHASONE 4 MG/1 ML VIAL IV SCH (08:32)
[2020-06-02] MEDS: cefTRIAXone 1,000 MG in SYRINGE 1 EACH IV SCH (08:34)
[2020-06-02] MEDS: guaiFENesin 200 MG/10 ML UDCUP PO PRN (08:36)
[2020-06-02] MEDS: ASCORBIC ACID 500 MG TABLET PO SCH (08:36)
[2020-06-02] MEDS: ZINC SULFATE 220 MG CAPSULE PO SCH (08:36)
[2020-06-02] MEDS: ENOXAPARIN 40 MG/0.4 ML SYRINGE SUBCUT SCH (08:52)
== END 2020-06-02 13:24 | disposition home or self-care (01) | DRG 177 ==
LOC: N.ED 08:55 → N.EDINP 08:55 → N.2E 13:40
PROVIDERS: ADMIT Internal Medicine; ATTEND Internal Medicine

== ENCOUNTER 2020-09-27 08:24 | Observation (INO) ==
[2020-09-27 08:47] LABS: Basophils # 0.2 10*3/uL (0.0-0.2); Basophils % 1.5 % (0.0-0.8); Eosinophils # 0.7 10*3/uL (0.0-0.87); Eosinophils % 5.9 % (0.00-10.9); Hematocrit 49.9 VOL% (42.0-52.0); Immature Granulocytes % 0.3 %; Immature Granulocytes Absolute 0.03 #; Lymphocytes # 2.2 10*3/uL (1.4-4.0); Lymphocytes % 19.7 % (21.2-54.2); Mean Corpuscular HGB Conc 34.1 GM/DL (32-36); Mean Platelet Volume 9.4 FL (9.6-12.0); Monocytes % 12.8 % (1.7-12.7); Neutrophils % 59.8 % (38.7-73.9); Platelet Count 340 T/CUMM (130-400); Red Cell Distribution Width 14.6 % (9.3-17.3)
[2020-09-27] MEDS ORDERED: ALBUTEROL NEB SOLN 5 MG/ML 20 ML/BOTTLE CONT NEB STA (09:08)
[2020-09-27] MEDS ORDERED: methylPREDNISolone SOD SUC 125 MG/2 ML VIAL IV STA (09:08)
[2020-09-27 09:58] LABS: Albumin 3.9 G/DL (3.4-5.0); Bilirubin,Total 0.6 MG/DL (0.2-1.0); Calcium 9.6 MG/DL (8.5-10.1); Osmolality,Calculated 280.4 MOS/KG (273-304); Total Protein 8.2 G/DL (6.4-8.3)
[2020-09-27] MEDS ORDERED: ALBUTEROL 2.5 MG/3 ML NEB RESP TX PRN (12:10)
[2020-09-27] MEDS ORDERED: ACETAMINOPHEN 325 MG TABLET PO PRN (12:11)
[2020-09-27] MEDS ORDERED: DEXTROSE 50% 25 GM/50 ML VIAL IV PRN (12:11)
[2020-09-27] MEDS ORDERED: guaiFENesin/DM ER 600-30 MG TABLET PO PRN (12:11)
[2020-09-27] MEDS ORDERED: ONDANSETRON 4 MG/2 ML VIAL IV PRN (12:11)
[2020-09-27] MEDS ORDERED: GLUCAGON 1 MG VIAL IM PRN (12:11)
[2020-09-27] MEDS ORDERED: methylPREDNISolone SOD SUC 40 MG/1 ML VIAL IV SCH (12:30)
[2020-09-27] MEDS ORDERED: methylPREDNISolone SOD SUC 40 MG/1 ML VIAL ONE (13:21)
[2020-09-27] MEDS: cefTRIAXone 1,000 MG in SYRINGE 1 EACH IV SCH (13:38)
[2020-09-27] MEDS: SODIUM CHLORIDE 0.9% 1,000 ML IV SCH (13:38)
[2020-09-27] MEDS: AZITHROMYCIN INJ 500 MG in SODIUM CHLORIDE 0.9% 250 ML IV SCH (13:39)
[2020-09-27] MEDS: MONTELUKAST 10 MG TABLET PO SCH (13:39)
[2020-09-27] MEDS: methylPREDNISolone SOD SUC 40 MG/1 ML VIAL IV SCH ×2 (14:55→21:16)
[2020-09-27] MEDS: ALBUTEROL/IPRATROPIUM 3 ML NEB RESP TX SCH ×3 (15:00→23:51)
[2020-09-27] MEDS: ENOXAPARIN 40 MG/0.4 ML SYRINGE SUBCUT SCH (21:16)
[2020-09-27] MEDS: BUDESONIDE/FORMOTEROL 160-4.5 INHALER 6 GM INH SCH (21:22)
[2020-09-28] MEDS: SODIUM CHLORIDE 0.9% 1,000 ML IV SCH ×2 (00:24→01:50)
[2020-09-28] MEDS: methylPREDNISolone SOD SUC 40 MG/1 ML VIAL IV SCH ×3 (02:09→20:44)
[2020-09-28] MEDS: ALBUTEROL/IPRATROPIUM 3 ML NEB RESP TX SCH ×6 (03:29→23:10)
[2020-09-28 06:03] LABS: Bilirubin,Total 0.6 MG/DL (0.2-1.0); Calcium 8.8 MG/DL (8.5-10.1); Osmolality,Calculated 284.3 MOS/KG (273-304); Total Protein 6.8 G/DL (6.4-8.3)
[2020-09-28 06:10] LABS: Hematocrit 41.5 VOL% (42.0-52.0); Immature Granulocytes % 0.6 %; Immature Granulocytes Absolute 0.03 #; Lymphocytes # 0.7 10*3/uL (1.4-4.0); Mean Corpuscular HGB Conc 33.7 GM/DL (32-36); Mean Corpuscular Volume 86.6 FL (87-102); Mean Platelet Volume 10.3 FL (9.6-12.0); Monocytes % 1.8 % (1.7-12.7); Neutrophils % 84.6 % (38.7-73.9); Platelet Count 290 T/CUMM (130-400); Red Blood Count 4.79 MC/CUMM (3.8-5.5); Red Cell Distribution Width 14.4 % (9.3-17.3)
[2020-09-28 06:11] LABS: White Blood Count 5.1 T/CUMM (4-12)
[2020-09-28] MEDS: BUDESONIDE/FORMOTEROL 160-4.5 INHALER 6 GM INH SCH ×2 (08:53→20:45)
[2020-09-28] MEDS: MONTELUKAST 10 MG TABLET PO SCH (08:53)
[2020-09-28] MEDS: cefTRIAXone 1,000 MG in SYRINGE 1 EACH IV SCH (12:03)
[2020-09-28] MEDS: AZITHROMYCIN INJ 500 MG in SODIUM CHLORIDE 0.9% 250 ML IV SCH (12:08)
[2020-09-28] MEDS: ENOXAPARIN 40 MG/0.4 ML SYRINGE SUBCUT SCH (20:44)
[2020-09-29] MEDS: ALBUTEROL/IPRATROPIUM 3 ML NEB RESP TX SCH ×2 (02:55→07:27)
[2020-09-29] MEDS ORDERED: PNEUMOCOCCAL VACCINE (13 VALENT) 0.5 ML SYRINGE IM ONE (08:16)
[2020-09-29] MEDS ORDERED: INFLUENZA VIRUS VACCINE 0.5 ML SYRINGE IM ONE (08:16)
[2020-09-29 08:19] VITALS: BP 146/90
[2020-09-29] MEDS: methylPREDNISolone SOD SUC 40 MG/1 ML VIAL IV SCH (08:32)
[2020-09-29] MEDS: BUDESONIDE/FORMOTEROL 160-4.5 INHALER 6 GM INH SCH (08:32)
[2020-09-29] MEDS: MONTELUKAST 10 MG TABLET PO SCH (08:32)
== END 2020-09-29 12:13 | disposition home or self-care (01) ==
LOC: EDUNIT# → EDBD → N.ED 08:24 → INTOOBSV 12:11 → N.EDINP 12:11 → N.5E 14:02
PROVIDERS: ADMIT Internal Medicine; ATTEND Internal Medicine

== ENCOUNTER 2020-12-01 18:32 | Observation (INO) ==
[2020-12-01 18:59] LABS: Basophils # 0.1 10*3/uL (0.0-0.2); Basophils % 1.2 % (0.0-0.8); Eosinophils # 0.4 10*3/uL (0.0-0.87); Eosinophils % 4.2 % (0.00-10.9); Hematocrit 48.1 VOL% (42.0-52.0); Hemoglobin 16.5 GM/DL (14.0-18.0); Immature Granulocytes % 0.3 %; Immature Granulocytes Absolute 0.03 #; Lymphocytes # 2.4 10*3/uL (1.4-4.0); Lymphocytes % 23.4 % (21.2-54.2); Mean Corpuscular HGB Conc 34.3 GM/DL (32-36); Mean Corpuscular Volume 86.4 FL (87-102); Mean Platelet Volume 9.2 FL (9.6-12.0); Monocytes % 10.8 % (1.7-12.7); Neutrophils % 60.1 % (38.7-73.9); Platelet Count 374 T/CUMM (130-400); Red Blood Count 5.57 MC/CUMM (3.8-5.5); Red Cell Distribution Width 13.5 % (9.3-17.3); White Blood Count 10.4 T/CUMM (4-12)
[2020-12-01] MEDS ORDERED: methylPREDNISolone SOD SUC 125 MG/2 ML VIAL IV STA (19:14)
[2020-12-01] MEDS ORDERED: ALBUTEROL/IPRATROPIUM 3 ML NEB RESP TX STA (19:14)
[2020-12-01] MEDS ORDERED: ONDANSETRON 4 MG/2 ML VIAL IV STA (19:14)
[2020-12-01 19:29] LABS: INR 1.1; PT Patient Result 11.4 SECS (9.8-11.9)
[2020-12-01] MEDS ORDERED: ALBUTEROL NEB SOLN 5 MG/ML 20 ML/BOTTLE CONT NEB SCH (19:30)
[2020-12-01 19:38] LABS: Albumin 3.6 G/DL (3.4-5.0); Bilirubin,Total 0.4 MG/DL (0.2-1.0); Osmolality,Calculated 273.5 MOS/KG (273-304); Potassium 4.3 MMOL/L (3.5-5.1); Total Protein 7.1 G/DL (6.4-8.9)
[2020-12-01] MEDS ORDERED: MAGNESIUM SULF RIDER 2 GM in PREMIX 1 EACH IV STA (20:02)
[2020-12-01] MEDS ORDERED: MORPHINE 4 MG/1 ML VIAL IV PRN (20:10)
[2020-12-01] MEDS ORDERED: diphenhydrAMINE CAP 25 MG CAPSULE PO PRN (20:10)
[2020-12-01] MEDS ORDERED: GLUCAGON 1 MG VIAL IM PRN (20:10)
[2020-12-01] MEDS ORDERED: hydrALAZINE 20 MG/1 ML VIAL IV PRN (20:10)
[2020-12-01] MEDS ORDERED: ACETAMINOPHEN 325 MG TABLET PO PRN (20:10)
[2020-12-01] MEDS ORDERED: ONDANSETRON 4 MG/2 ML VIAL IV PRN (20:10)
[2020-12-01] MEDS ORDERED: guaiFENesin/DM ER 600-30 MG TABLET PO PRN (20:10)
[2020-12-01] MEDS ORDERED: DEXTROSE 50% 25 GM/50 ML VIAL IV PRN (20:10)
[2020-12-01] MEDS ORDERED: NICOTINE 21 MG/24 HR PATCH TRANSDERM PRN (20:10)
[2020-12-01] MEDS: AZITHROMYCIN INJ 500 MG in SODIUM CHLORIDE 0.9% 250 ML IV SCH (22:29)
[2020-12-02] MEDS: ALBUTEROL/IPRATROPIUM 3 ML NEB RESP TX SCH ×4 (01:52→19:19)
[2020-12-02] MEDS: methylPREDNISolone SOD SUC 40 MG/1 ML VIAL IV SCH ×2 (09:19→20:23)
[2020-12-02] MEDS: MONTELUKAST 10 MG TABLET PO SCH (09:19)
[2020-12-02] MEDS: PANTOPRAZOLE 40 MG VIAL IV SCH (12:11)
[2020-12-02] MEDS: ENOXAPARIN 40 MG/0.4 ML SYRINGE SUBCUT SCH (12:11)
[2020-12-02 12:31] LABS: Calcium 9.3 MG/DL (8.5-10.1); Osmolality,Calculated 279.5 MOS/KG (273-304)
[2020-12-02] MEDS: AZITHROMYCIN INJ 500 MG in SODIUM CHLORIDE 0.9% 250 ML IV SCH (20:30)
[2020-12-02] MEDS ORDERED: SIMVASTATIN 20 MG TABLET PO SCH (21:00)
[2020-12-03] MEDS: ALBUTEROL/IPRATROPIUM 3 ML NEB RESP TX SCH ×2 (00:01→07:21)
[2020-12-03 05:58] LABS: Calcium 8.7 MG/DL (8.5-10.1); Potassium 4.4 MMOL/L (3.5-5.1)
[2020-12-03] MEDS: MONTELUKAST 10 MG TABLET PO SCH (08:37)
[2020-12-03] MEDS: PANTOPRAZOLE 40 MG VIAL IV SCH (08:37)
[2020-12-03] MEDS: methylPREDNISolone SOD SUC 40 MG/1 ML VIAL IV SCH (08:37)
[2020-12-03 12:01] VITALS: BP 137/88
[2020-12-03] MEDS: ENOXAPARIN 40 MG/0.4 ML SYRINGE SUBCUT SCH (13:22)
== END 2020-12-03 13:45 | disposition home or self-care (01) ==
LOC: EDUNIT# → EDBD → N.EDINP 18:32 → N.ED 18:32 → SUATTDRO 20:10 → N.3E 21:42
PROVIDERS: ADMIT Internal Medicine; ATTEND Internal Medicine

== ENCOUNTER 2021-02-10 19:25 | Observation (INO) ==
[2021-02-10] MEDS ORDERED: ALBUTEROL/IPRATROPIUM 3 ML NEB RESP TX STA ×2 (19:42→19:43)
[2021-02-10] MEDS ORDERED: methylPREDNISolone SOD SUC 125 MG/2 ML VIAL IV STA (19:42)
[2021-02-10 19:53] LABS: Basophils # 0.2 10*3/uL (0.0-0.2); Basophils % 1.3 % (0.0-0.8); Eosinophils % 6.2 % (0.00-10.9); Hematocrit 50.2 VOL% (42.0-52.0); Hemoglobin 16.5 GM/DL (14.0-18.0); Immature Granulocytes % 0.4 %; Immature Granulocytes Absolute 0.07 #; Lymphocytes # 3.3 10*3/uL (1.4-4.0); Lymphocytes % 21.1 % (21.2-54.2); Mean Corpuscular HGB Conc 32.9 GM/DL (32-36); Mean Corpuscular Volume 89.2 FL (87-102); Mean Platelet Volume 9.4 FL (9.6-12.0); Monocytes % 10.7 % (1.7-12.7); Neutrophils % 60.3 % (38.7-73.9); Platelet Count 380 T/CUMM (130-400); Red Blood Count 5.63 MC/CUMM (3.8-5.5); Red Cell Distribution Width 13.2 % (9.3-17.3); White Blood Count 15.8 T/CUMM (4-12)
[2021-02-10 20:24] LABS: Alanine Aminotransferase 34 U/L (16-61); Albumin 3.7 G/DL (3.4-5.0); Alkaline Phosphatase 50 U/L (45-117); Aspartate Amino Transferase 33 U/L (0-37); Bilirubin,Total < 0.39 MG/DL (0.2-1.0); Blood Urea Nitrogen 18 MG/DL (7-18); Calcium 9.5 MG/DL (8.5-10.1); Carbon Dioxide 27 MMOL/L (21-32); Estimated Glom Filtration Rate 95 ML/MIN; Glucose 97 MG/DL (74-106); Osmolality,Calculated 282.3 MOS/KG (273-304); Potassium 4.4 MMOL/L (3.5-5.1); Sodium 141 MMOL/L (136-145); Total Protein 7.6 G/DL (6.4-8.2)
[2021-02-10] MEDS ORDERED: ALBUTEROL 2.5 MG/3 ML NEB RESP TX PRN (21:32)
[2021-02-10] MEDS ORDERED: guaiFENesin/DM ER 600-30 MG TABLET PO PRN (21:32)
[2021-02-10] MEDS ORDERED: hydrALAZINE 20 MG/1 ML VIAL IV PRN (21:32)
[2021-02-10] MEDS ORDERED: ZALEPLON 5 MG CAPSULE PO PRN (21:32)
[2021-02-10] MEDS ORDERED: DOCUSATE SODIUM 100 MG CAPSULE PO PRN (21:32)
[2021-02-10] MEDS ORDERED: ACETAMINOPHEN 325 MG TABLET PO PRN (21:32)
[2021-02-10] MEDS ORDERED: NICOTINE 21 MG/24 HR PATCH TRANSDERM PRN (21:32)
[2021-02-10] MEDS ORDERED: GLUCAGON 1 MG VIAL IM PRN (21:32)
[2021-02-10] MEDS ORDERED: diphenhydrAMINE CAP 25 MG CAPSULE PO PRN (21:32)
[2021-02-10] MEDS ORDERED: ONDANSETRON 4 MG/2 ML VIAL IV PRN (21:32)
[2021-02-10] MEDS ORDERED: DEXTROSE 50% 25 GM/50 ML VIAL IV PRN (21:32)
[2021-02-10] MEDS ORDERED: MORPHINE 4 MG/1 ML VIAL IV PRN (21:32)
[2021-02-10] MEDS ORDERED: ALBUTEROL/IPRATROPIUM 3 ML NEB RESP TX SCH (22:00)
[2021-02-10] MEDS: AZITHROMYCIN INJ 500 MG in SODIUM CHLORIDE 0.9% 250 ML IV SCH (22:10)
[2021-02-11] MEDS: ALBUTEROL/IPRATROPIUM 3 ML NEB RESP TX SCH ×4 (00:36→20:06)
[2021-02-11] MEDS: methylPREDNISolone SOD SUC 40 MG/1 ML VIAL IV SCH ×4 (01:30→20:50)
[2021-02-11 05:34] LABS: Basophils % 0.5 % (0.0-0.8); Hematocrit 45.4 VOL% (42.0-52.0); Hemoglobin 15.4 GM/DL (14.0-18.0); Immature Granulocytes % 0.4 %; Immature Granulocytes Absolute 0.03 #; Lymphocytes # 0.5 10*3/uL (1.4-4.0); Lymphocytes % 6.3 % (21.2-54.2); Mean Corpuscular HGB Conc 33.9 GM/DL (32-36); Mean Corpuscular Volume 87.5 FL (87-102); Mean Platelet Volume 9.6 FL (9.6-12.0); Monocytes % 0.5 % (1.7-12.7); Neutrophils % 92.3 % (38.7-73.9); Platelet Count 320 T/CUMM (130-400); Red Blood Count 5.19 MC/CUMM (3.8-5.5); White Blood Count 7.7 T/CUMM (4-12)
[2021-02-11 05:54] LABS: Eosinophils 1 % (0-10); Lymphocytes 6 % (20-55); Nucleated Red Blood Cells 0 (0-5); Platelet Estimate Normal; Segmented Neutrophils 93 % (50-85); Total Cells Counted 100
[2021-02-11 05:58] LABS: Albumin 3.3 G/DL (3.4-5.0); Bilirubin,Total 0.6 MG/DL (0.2-1.0); Calcium 9.3 MG/DL (8.5-10.1); Osmolality,Calculated 280.5 MOS/KG (273-304); Potassium 5.4 MMOL/L (3.5-5.1); Total Protein 6.9 G/DL (6.4-8.2)
[2021-02-11] MEDS: BUDESONIDE 0.5 MG/2 ML NEB RESP TX SCH ×2 (07:21→20:06)
[2021-02-11] MEDS: ARFORMOTEROL 15 MCG/2 ML NEB RESP TX SCH ×2 (07:21→20:06)
[2021-02-11] MEDS: PANTOPRAZOLE 40 MG TABLET PO SCH (08:30)
[2021-02-11] MEDS: ENOXAPARIN 40 MG/0.4 ML SYRINGE SUBCUT SCH (08:31)
[2021-02-11 09:46] LABS: Bilirubin,Urine Negative (Negative); Blood, Urine Negative (Negative); Glucose,Urine (UA) Negative (Negative); Ketones,Urine 20 mg/dL (Negative); Mucus,Urine Occasional /LPF (Occasional); Nitrite,Urine Negative (Negative); Protein,Urine Negative; RBC,Urine 2 /HPF (0-4); Urine Appearance CLEAR (Clear); Urine Color Yellow (Yellow); Urine Specific Gravity 1.017 (1.001-1.035); Urine Urobilinogen < 2.0 EU/DL (0.2-1.0)
[2021-02-11] MEDS: cefTRIAXone 1,000 MG in SODIUM CHLORIDE 0.9% 100 ML IV SCH (14:00)
[2021-02-11] MEDS: AZITHROMYCIN INJ 500 MG in SODIUM CHLORIDE 0.9% 250 ML IV SCH (21:02)
[2021-02-12] MEDS: ALBUTEROL/IPRATROPIUM 3 ML NEB RESP TX SCH ×2 (01:38→07:12)
[2021-02-12] MEDS: methylPREDNISolone SOD SUC 40 MG/1 ML VIAL IV SCH ×2 (03:27→08:33)
[2021-02-12 06:11] LABS: Basophils % 0.1 % (0.0-0.8); Hematocrit 42.8 VOL% (42.0-52.0); Hemoglobin 14.5 GM/DL (14.0-18.0); Immature Granulocytes % 0.8 %; Immature Granulocytes Absolute 0.15 #; Lymphocytes # 0.7 10*3/uL (1.4-4.0); Lymphocytes % 3.3 % (21.2-54.2); Mean Corpuscular HGB Conc 33.9 GM/DL (32-36); Mean Corpuscular Volume 86.8 FL (87-102); Mean Platelet Volume 9.7 FL (9.6-12.0); Monocytes % 2.9 % (1.7-12.7); Neutrophils % 92.9 % (38.7-73.9); Platelet Count 337 T/CUMM (130-400); Red Blood Count 4.93 MC/CUMM (3.8-5.5); Red Cell Distribution Width 13.1 % (9.3-17.3); White Blood Count 19.8 T/CUMM (4-12)
[2021-02-12 06:38] LABS: Calcium 8.9 MG/DL (8.5-10.1); Osmolality,Calculated 281.4 MOS/KG (273-304); Potassium 4.2 MMOL/L (3.5-5.1)
[2021-02-12 06:44] LABS: Risk Ratio 5.07; VLDL CHOLESTEROL 19.8 MG/DL
[2021-02-12] MEDS: ARFORMOTEROL 15 MCG/2 ML NEB RESP TX SCH (07:12)
[2021-02-12] MEDS: BUDESONIDE 0.5 MG/2 ML NEB RESP TX SCH (07:12)
[2021-02-12 08:16] LABS: Hypochromasia Slight; Lymphocytes 1 % (20-55); Platelet Estimate Normal; Polychromasia Slight; Segmented Neutrophils 98 % (50-85); Total Cells Counted 100
[2021-02-12] MEDS: ENOXAPARIN 40 MG/0.4 ML SYRINGE SUBCUT SCH (08:33)
[2021-02-12] MEDS: PANTOPRAZOLE 40 MG TABLET PO SCH (08:33)
[2021-02-12] MEDS: cefTRIAXone 1,000 MG in SODIUM CHLORIDE 0.9% 100 ML IV SCH (08:34)
[2021-02-12 12:02] VITALS: BP 128/88
[2021-02-12] MEDS ORDERED: ROSUVASTATIN 10 MG TABLET PO SCH (21:00)
== END 2021-02-12 12:15 | disposition home or self-care (01) ==
LOC: EDBD → EDSEX → EDUNIT# → N.ED 19:25 → N.EDINP 19:25 → N.5E 22:59
PROVIDERS: ADMIT Internal Medicine; ATTEND Internal Medicine

== ENCOUNTER 2021-06-18 22:09 | Inpatient (IN) ==
[2021-06-18] MEDS ORDERED: methylPREDNISolone SOD SUC 125 MG/2 ML VIAL IV STA (22:29)
[2021-06-18] MEDS ORDERED: ALBUTEROL/IPRATROPIUM 3 ML NEB RESP TX STA (22:29)
[2021-06-18 22:49] LABS: Basophils # 0.2 10*3/uL (0.0-0.2); Basophils % 1.4 % (0.0-0.8); Eosinophils # 0.4 10*3/uL (0.0-0.87); Eosinophils % 3.6 % (0.00-10.9); Hemoglobin 16.2 GM/DL (14.0-18.0); Immature Granulocytes % 0.4 %; Immature Granulocytes Absolute 0.04 #; Lymphocytes % 18.5 % (21.2-54.2); Mean Corpuscular HGB Conc 33.1 GM/DL (32-36); Mean Corpuscular Volume 86.6 FL (87-102); Mean Platelet Volume 9.5 FL (9.6-12.0); Monocytes % 9.9 % (1.7-12.7); Neutrophils % 66.2 % (38.7-73.9); Platelet Count 389 T/CUMM (130-400); Red Blood Count 5.66 MC/CUMM (3.8-5.5); Red Cell Distribution Width 14.8 % (9.3-17.3)
[2021-06-18 23:00] LABS: INR 1.1; PT Patient Result 11.9 SECS (10.5-12.0)
[2021-06-18 23:08] LABS: Alanine Aminotransferase 26 U/L (16-61); Albumin 3.5 G/DL (3.4-5.0); Alkaline Phosphatase 51 U/L (45-117); Aspartate Amino Transferase 34 U/L (0-37); Bilirubin,Total < 0.39 MG/DL (0.20-1.00); Blood Urea Nitrogen 12 MG/DL (7-18); Calcium 9.6 MG/DL (8.5-10.1); Carbon Dioxide 26 MMOL/L (21-32); Estimated Glom Filtration Rate 112 ML/MIN; Glucose 94 MG/DL (74-106); Osmolality,Calculated 287.7 MOS/KG (273-304); Potassium 4.4 MMOL/L (3.5-5.1); Sodium 145 MMOL/L (136-145); Total Protein 7.5 G/DL (6.4-8.2)
[2021-06-19] MEDS ORDERED: ALBUTEROL 2.5 MG/3 ML NEB RESP TX STA (00:09)
[2021-06-19] MEDS ORDERED: GLUCAGON 1 MG VIAL IM PRN (00:10)
[2021-06-19] MEDS ORDERED: ONDANSETRON 4 MG/2 ML VIAL IV PRN (00:10)
[2021-06-19] MEDS ORDERED: DEXTROSE 50% 25 GM/50 ML VIAL IV PRN (00:10)
[2021-06-19] MEDS ORDERED: DOCUSATE SODIUM 100 MG CAPSULE PO PRN (00:10)
[2021-06-19] MEDS ORDERED: hydrALAZINE 20 MG/1 ML VIAL IV PRN (00:10)
[2021-06-19] MEDS ORDERED: ACETAMINOPHEN 325 MG TABLET PO PRN (00:10)
[2021-06-19] MEDS ORDERED: guaiFENesin/DM ER 600-30 MG TABLET PO PRN (00:10)
[2021-06-19] MEDS ORDERED: ZALEPLON 5 MG CAPSULE PO PRN (00:10)
[2021-06-19] MEDS: ALBUTEROL/IPRATROPIUM 3 ML NEB RESP TX SCH ×4 (00:26→20:20)
[2021-06-19] MEDS ORDERED: ENOXAPARIN 80 MG/0.8 ML SYRINGE SUBCUT STA (01:12)
[2021-06-19] MEDS: LEVOFLOXACIN INJ 500 MG/100 ML PREMIX IV SCH (02:05)
[2021-06-19 04:44] LABS: Basophils # 0.1 10*3/uL (0.0-0.2); Eosinophils % 0.1 % (0.00-10.9); Hematocrit 48.7 VOL% (42.0-52.0); Immature Granulocytes % 0.5 %; Immature Granulocytes Absolute 0.05 #; Lymphocytes # 0.3 10*3/uL (1.4-4.0); Lymphocytes % 3.6 % (21.2-54.2); Mean Corpuscular HGB Conc 32.9 GM/DL (32-36); Mean Platelet Volume 9.8 FL (9.6-12.0); Monocytes % 0.9 % (1.7-12.7); Neutrophils % 93.9 % (38.7-73.9); Platelet Count 365 T/CUMM (130-400); Red Cell Distribution Width 14.9 % (9.3-17.3); White Blood Count 9.2 T/CUMM (4-12)
[2021-06-19 05:06] LABS: Calcium 9.5 MG/DL (8.5-10.1); Osmolality,Calculated 283.1 MOS/KG (273-304); Potassium 4.3 MMOL/L (3.5-5.1)
[2021-06-19 05:09] LABS: Lymphocytes 7 % (20-55); Platelet Estimate Adequate; Segmented Neutrophils 92 % (50-85); Total Cells Counted 100
[2021-06-19] MEDS: methylPREDNISolone SOD SUC 125 MG/2 ML VIAL IV SCH ×3 (08:18→23:56)
[2021-06-19] MEDS: PANTOPRAZOLE 40 MG TABLET PO SCH (08:19)
[2021-06-19] MEDS ORDERED: ENOXAPARIN 40 MG/0.4 ML SYRINGE SUBCUT SCH (09:00)
[2021-06-20] MEDS: ALBUTEROL/IPRATROPIUM 3 ML NEB RESP TX SCH ×4 (00:55→18:56)
[2021-06-20] MEDS: LEVOFLOXACIN INJ 500 MG/100 ML PREMIX IV SCH (01:45)
[2021-06-20 05:51] LABS: Basophils % 0.1 % (0.0-0.8); Hematocrit 46.2 VOL% (42.0-52.0); Hemoglobin 15.1 GM/DL (14.0-18.0); Immature Granulocytes % 0.6 %; Immature Granulocytes Absolute 0.08 #; Lymphocytes # 0.7 10*3/uL (1.4-4.0); Lymphocytes % 5.4 % (21.2-54.2); Mean Corpuscular HGB Conc 32.7 GM/DL (32-36); Mean Corpuscular Volume 86.7 FL (87-102); Mean Platelet Volume 10.1 FL (9.6-12.0); Monocytes % 4.8 % (1.7-12.7); Neutrophils % 89.1 % (38.7-73.9); Platelet Count 391 T/CUMM (130-400); Red Blood Count 5.33 MC/CUMM (3.8-5.5); Red Cell Distribution Width 14.9 % (9.3-17.3); White Blood Count 12.5 T/CUMM (4-12)
[2021-06-20 06:18] LABS: Calcium 9.3 MG/DL (8.5-10.1); Osmolality,Calculated 279.5 MOS/KG (273-304); Potassium 4.1 MMOL/L (3.5-5.1)
[2021-06-20] MEDS: PANTOPRAZOLE 40 MG TABLET PO SCH (08:49)
[2021-06-20] MEDS: methylPREDNISolone SOD SUC 125 MG/2 ML VIAL IV SCH (08:49)
[2021-06-20] MEDS: ENOXAPARIN 40 MG/0.4 ML SYRINGE SUBCUT SCH (08:49)
[2021-06-20] MEDS: methylPREDNISolone SOD SUC 40 MG/1 ML VIAL IV SCH (17:05)
[2021-06-20] MEDS: FLUTICASONE/SALMETEROL 500-50 DISKUS 14 DOSE INH SCH (20:56)
[2021-06-20] MEDS: guaiFENesin 200 MG/10 ML UDCUP PO PRN (20:56)
[2021-06-21] MEDS: LEVOFLOXACIN INJ 500 MG/100 ML PREMIX IV SCH (02:11)
[2021-06-21] MEDS: methylPREDNISolone SOD SUC 40 MG/1 ML VIAL IV SCH ×2 (02:12→09:03)
[2021-06-21] MEDS: guaiFENesin 200 MG/10 ML UDCUP PO PRN (02:12)
[2021-06-21] MEDS: ALBUTEROL/IPRATROPIUM 3 ML NEB RESP TX SCH ×2 (07:20)
[2021-06-21 08:31] LABS: Basophils % 0.1 % (0.0-0.8); Hematocrit 42.9 VOL% (42.0-52.0); Hemoglobin 14.3 GM/DL (14.0-18.0); Immature Granulocytes % 0.7 %; Immature Granulocytes Absolute 0.12 #; Lymphocytes # 0.6 10*3/uL (1.4-4.0); Lymphocytes % 3.4 % (21.2-54.2); Mean Corpuscular HGB Conc 33.3 GM/DL (32-36); Mean Corpuscular Volume 86.3 FL (87-102); Mean Platelet Volume 9.8 FL (9.6-12.0); Monocytes % 3.5 % (1.7-12.7); Neutrophils % 92.3 % (38.7-73.9); Platelet Count 358 T/CUMM (130-400); Red Blood Count 4.97 MC/CUMM (3.8-5.5); Red Cell Distribution Width 15.2 % (9.3-17.3); White Blood Count 16.2 T/CUMM (4-12)
[2021-06-21 08:47] LABS: Osmolality,Calculated 286.1 MOS/KG (273-304)
[2021-06-21 08:52] LABS: Lymphocytes 7 % (20-55); Microcytosis Slight; Platelet Estimate Adequate; Segmented Neutrophils 90 % (50-85); Total Cells Counted 100
[2021-06-21] MEDS ORDERED: amLODIPine 5 MG TABLET PO SCH (09:00)
[2021-06-21] MEDS: PANTOPRAZOLE 40 MG TABLET PO SCH (09:01)
[2021-06-21] MEDS: ENOXAPARIN 40 MG/0.4 ML SYRINGE SUBCUT SCH (09:02)
[2021-06-21] MEDS: FLUTICASONE/SALMETEROL 500-50 DISKUS 14 DOSE INH SCH (09:08)
[2021-06-21 12:22] VITALS: BP 137/90
== END 2021-06-21 14:50 | disposition home or self-care (01) | DRG 192 ==
LOC: EDUNIT# → EDBD → N.ED 22:09 → N.EDINP 06-19 00:10 → N.5E 06-19 00:58
PROVIDERS: ADMIT Internal Medicine; ATTEND Internal Medicine